=== PATIENT | female | born 1940 ===

== ENCOUNTER 2023-11-08 18:17 | Inpatient (IN) | payer MEDICARE, OTHER ==
[~2023-11-08] VITALS: Ht 144.8 cm; Wt 53.1 kg
[2023-11-08] MEDS ORDERED: NITROFURANTOIN/NITROFURAN MAC 100 MG CAPSULE PO ONE (20:14)
[2023-11-08] MEDS: NITROFURANTOIN/NITROFURAN MAC 100 MG CAPSULE PO ONE (20:15)
[2023-11-08] MEDS ORDERED: METO-356 PO (20:31)
[2023-11-08] MEDS ORDERED: APIX2.5T PO (20:31)
[2023-11-08] MEDS ORDERED: POTA10CA43 PO (20:31)
[2023-11-08] MEDS ORDERED: DIGO125T PO (20:31)
[2023-11-08] MEDS ORDERED: EMPA10TA PO (20:31)
[2023-11-08] MEDS ORDERED: LORA0.5T48 PO (20:31)
[2023-11-08] MEDS ORDERED: CEFD300C3 PO (20:33)
[2023-11-08] MEDS ORDERED: OLAN2.5T3 PO (20:33)
[2023-11-08] MEDS ORDERED: FURO40TA5 PO (20:33)
[2023-11-08] MEDS ORDERED: CHOL200074 PO (20:33)
[2023-11-08 22:00] VITALS: BP 123/94; TEMP 98.1; O2SAT 98
[2023-11-08] MEDS ORDERED: MAGNESIUM HYDROXIDE 30 ML LIQUID UDC PO PRN (23:00)
[2023-11-08] MEDS ORDERED: MAG HYDROX/AL HYDROX/SIMETH 30 ML LIQUID UDC PO PRN (23:00)
[2023-11-08] MEDS ORDERED: ACETAMINOPHEN 325 MG TABLET PO PRN (23:00)
[2023-11-08] MEDS ORDERED: LORAZEPAM 1 MG TABLET PO PRN (23:00)
[2023-11-08] MEDS: BLOOD SUGAR DIAGNOSTIC 1 EACH STRIP VI ONE (23:46)
[2023-11-09 07:59] VITALS: BP 104/60; TEMP 98; O2SAT 100
[2023-11-09] MEDS: FLUOXETINE HCL 10 MG CAPSULE PO SCH (09:00)
[2023-11-09] MEDS: LORAZEPAM 1 MG TABLET PO PRN (10:13)
[2023-11-09] MEDS: POTASSIUM CHLORIDE 10 MEQ TAB.PRT.SR PO SCH (13:46)
[2023-11-09] MEDS: FUROSEMIDE 40 MG TABLET PO SCH (13:46)
[2023-11-09] MEDS: DIGOXIN 125 MCG TABLET PO SCH (14:49)
[2023-11-09 15:33] VITALS: BP 102/50; TEMP 98; O2SAT 99
[2023-11-09] MEDS: APIXABAN 2.5 MG TABLET PO SCH (16:36)
[2023-11-09 20:02] VITALS: BP 114/63; TEMP 98.9; O2SAT 98
[2023-11-10 07:58] VITALS: BP 149/79; TEMP 97.9; O2SAT 98
[2023-11-10] MEDS: METOPROLOL SUCCINATE XL 25 MG TAB.SR.24H PO SCH (08:34)
[2023-11-10 16:30] VITALS: BP 135/71; TEMP 98; O2SAT 98
[2023-11-10 20:34] VITALS: BP 140/66; TEMP 98; O2SAT 98
[2023-11-11 08:22] VITALS: BP 100/62; TEMP 98.1; O2SAT 98
[2023-11-11 16:15] VITALS: BP 93/63; TEMP 98; O2SAT 97
[2023-11-11 20:07] VITALS: BP 100/58; TEMP 97; O2SAT 96
[2023-11-12 08:04] VITALS: BP 119/78; TEMP 99.4; O2SAT 97
[2023-11-12 16:31] VITALS: BP 131/86; O2SAT 97
[2023-11-12] MEDS: QUETIAPINE FUMARATE 25 MG TABLET PO SCH (21:00)
[2023-11-12 21:11] VITALS: BP 105/64; TEMP 98.9; O2SAT 97
[2023-11-12] MEDS: ZOLPIDEM 5 MG TABLET PO PRN (23:31)
[2023-11-13 08:41] VITALS: BP 93/63; TEMP 98; O2SAT 99
[2023-11-13 15:25] VITALS: BP 101/48; TEMP 98; O2SAT 98
[2023-11-13 19:54] VITALS: BP 112/69; TEMP 97.9; O2SAT 100
[2023-11-13] MEDS: OLANZAPINE 2.5 MG TABLET PO SCH (20:18)
[2023-11-14 07:59] VITALS: BP 121/84; TEMP 98; O2SAT 98
[2023-11-14 15:24] VITALS: BP 113/67; TEMP 98; O2SAT 98
[2023-11-14 19:57] VITALS: BP 120/66; TEMP 97.9; O2SAT 96
[2023-11-15 07:56] VITALS: BP 120/62; TEMP 98.2; O2SAT 98
[2023-11-15] MEDS: FLUOXETINE HCL 20 MG CAPSULE PO SCH (08:37)
[2023-11-15] MEDS ORDERED: FLUOXETINE HCL 10 MG CAPSULE PO SCH (09:00)
[2023-11-15 15:34] VITALS: BP 161/64; TEMP 98; O2SAT 98
[2023-11-15 20:25] VITALS: BP 107/66; TEMP 97.9; O2SAT 95
[2023-11-16 07:52] VITALS: BP 97/59; TEMP 98; O2SAT 98
[2023-11-16] MEDS ORDERED: ENSURE WITH FIBER 237 ML LIQUID (CHOCOLATE) PO SCH (10:45)
[2023-11-16 16:01] VITALS: BP 97/66; TEMP 98; O2SAT 98
[2023-11-16] MEDS: ENSURE ENLIVE (VAN) 240 ML LIQUID PO SCH (17:00)
[2023-11-16 20:00] VITALS: BP 105/65; TEMP 98.1; O2SAT 99
[2023-11-16] MEDS: OLANZAPINE 5 MG TABLET PO SCH (21:08)
[2023-11-17 08:09] VITALS: BP 137/104; TEMP 97.8; O2SAT 97
[2023-11-17] MEDS: OLANZAPINE 10 MG VIAL IM ONE (13:13)
[2023-11-17 16:09] VITALS: BP 116/62; TEMP 97.9; O2SAT 96
[2023-11-17 20:00] VITALS: BP 125/57; TEMP 98; O2SAT 97
[2023-11-17] MEDS: OLANZAPINE 5 MG TABLET PO SCH (20:15)
[2023-11-18 07:57] VITALS: BP 91/58; TEMP 98.9; O2SAT 97
[2023-11-18 20:20] VITALS: BP 109/70; TEMP 98; O2SAT 98
[2023-11-19 08:01] VITALS: BP 113/60; TEMP 98.6; O2SAT 96
[2023-11-19] MEDS: PAROXETINE HCL 10 MG TABLET PO SCH (08:41)
[2023-11-19 16:29] VITALS: BP 104/66; TEMP 97.9; O2SAT 96
[2023-11-19 20:00] VITALS: BP 99/51; TEMP 98.7; O2SAT 96
[2023-11-20 08:04] VITALS: BP 100/54; TEMP 98; O2SAT 98
[2023-11-20 15:27] VITALS: BP 104/69; TEMP 98; O2SAT 98
[2023-11-20 20:00] VITALS: BP 112/58; TEMP 97.8; O2SAT 96
[2023-11-21 07:30] VITALS: BP 105/64; TEMP 98; O2SAT 96
[2023-11-21 15:23] VITALS: BP 108/63; TEMP 97.8; O2SAT 98
[2023-11-21 20:00] VITALS: BP 111/56; TEMP 97.6; O2SAT 100
[2023-11-22 07:59] VITALS: BP 100/57; TEMP 98; O2SAT 98
[2023-11-22] MEDS: OLANZAPINE 5 MG TABLET PO SCH (08:52)
[2023-11-22 15:04] VITALS: BP 91/51; TEMP 98; O2SAT 98
[2023-11-22 19:48] VITALS: BP 110/76; TEMP 98.1; O2SAT 96
[2023-11-23 07:51] VITALS: BP 110/68; TEMP 98; O2SAT 98
[2023-11-23 10:02] VITALS: BP 110/68
== END 2023-11-23 13:45 | DRG 885 ==
LOC: ER 18:26 → GPS 21:40
PROVIDERS: ADMIT Psychiatry & Neurology Psychiatry; ATTEND Nurse Practitioner Acute Care
DX: F32.2 Major depressive disorder, single episode, severe without psychotic features (principal); I11.0 Hypertensive heart disease with heart failure; I50.33 Acute on chronic diastolic (congestive) heart failure; I48.20 Chronic atrial fibrillation, unspecified; M48.56XA Collapsed vertebra, not elsewhere classified, lumbar region, initial encounter for fracture; N39.0 Urinary tract infection, site not specified; D68.59 Other primary thrombophilia; F43.21 Adjustment disorder with depressed mood; I34.0 Nonrheumatic mitral (valve) insufficiency; Z79.84 Long term (current) use of oral hypoglycemic drugs; Z79.01 Long term (current) use of anticoagulants
CPT/HCPCS: 36415; J2358